=== PATIENT | female | born 1960 | race Caucasian/White ===

== ENCOUNTER → 2017-04-25 | Outpatient (CLI) | payer OTHER ==
[~2017-04-25] MED LIST: ADVAIR 2501 DISK W/D PO; CALTRATE 600+D PO; CARAFATE PO; CERTAGEN PO; CHANTIX1 MG PO; COMBIVENT MININEB INH; DARVOCET-N 1001 TA1 PO; DARVOCET-N 1001 TAB PO; IBUPROFEN PO; LEXAPRO PO; LEXAPRO20 MG PO; NASACORT AQ16.5 GM; NASAL DECONGESTANT PO; NEXIUM PO; POTASSIUM GLUCO99 MG PO; PREMARIN PO; PREVACID PO; PRILOSEC PO; PROTONIX PO; SIMVASTATIN40 MG PO; SKELAXIN PO; VICODIN PO
--- NOTE | ~2017-04-25 | MR32 ---
[facility] A Service of [facility] & [facility] RADIOLOGY TEXT RESULTS PATIENT: SUJIT PERALTA LOCATION: [facility] : 64 UNIT #: [id number] AGE: [address]: Mendez Murphy MD SEX: F ORDER DR: [id number] [address] [address] [id number] O MR#: [id number] #: [id number] NAME: SUJIT PERALTA : 1960 SEX: F STUDY DATE/TIME: 04/25/2017 9:46 UNIT: [facility] ROOM: STUDY DESCRIPTION: MR Cervical Wo Contrast Attending Physician: Mendez Murphy M.D. Referring Physician: Mendez Murphy M.D. Ordering Physician: Mendez Murphy M.D. Primary Care Physician: Concepcion Celestin A.P.R.N. MRI CENTER REPORT This report is preliminary unless electronic signature is present. EXAM MRI of the cervical spine without contrast dated 04/25/2017 COMPARISON Plain film cervical spine dated 12/13/2016. HISTORY Increasing neck pain which radiates to the right side. It extends to right shoulder, right upper extremity for approximately 5 months. Right shoulder pain with decreased range of movement. FINDINGS Multisequence, multiplanar imaging of the cervical spine was obtained without contrast. Motion artifact is noted in multiple sequences. Sagittal STIR sequence was repeated as it was nondiagnostic. Disc osteophyte complex are noted at multiple levels of the cervical spine. Vertebral body heights are relatively preserved. There is a decreased T1 and slightly increased T2-signal lesion within the C2 vertebral body which is difficult to correlate in the plain film from 12/13/2016. No associated pathological fracture. It is noted in the sagittal sequence but not in the axials. No acute fracture fragment or subluxation. Bone edema is noted in C6-7 mid vertebral bodies. Cord demonstrates expected course and caliber. Evaluation of its signal is limited due to motion but grossly no significant abnormality is seen. There is an oval 2.3 x 1.9 x 2.3 cm lesion within the right thyroid lobe, incompletely characterized in the current study. C2-3: Disc osteophyte complex with severe left facet hypertrophic change and inferior left neural foraminal narrowing with patent superior aspect. No canal stenosis. C3-4: Disc osteophyte complex with moderate left and mild right facet hypertrophic change. Lulpvabh-yz-pinxie left and mild right neural foraminal narrowing are noted with borderline size to mild canal stenosis. [facility] A Service of [facility] RADIOLOGY TEXT RESULTS PATIENT: SUJIT PERALTA LOCATION: [facility] : 64 UNIT #: [id number] AGE: [address]: Mendez Murphy MD SEX: F ORDER DR: C4-5: Disc osteophyte complex with moderate to severe canal stenosis, severe right and vhywpoqn-dm-tdsgoe left neural foraminal narrowing. C5-6: Disc osteophyte complex with mild canal stenosis. Severe bilateral neural foraminal narrowing is seen, worse in the right. C6-7: Disc osteophyte complex with superimposed central protrusion. Mctl-ec-pcqxnqyn canal stenosis, severe right and zoalecur-ic-qntjyv left neural foraminal narrowing are present. C7-T1: Disc osteophyte complex with bilateral uncinate spurs. Severe right and axshbawn-mb-jwssby left neural foraminal narrowing are noted with ufcb-im-wsubyzlb left facet hypertrophic change. Borderline size to mild canal stenosis. IMPRESSION 1. Degenerative changes are noted at multiple levels, relatively worse from C3-4 to C6-7 levels with canal stenosis and neural foraminal narrowing. 2. Cord does not demonstrate any significant abnormality. 3. Within the right side of C2 vertebral body and adjacent dens, there is a 1 cm lesion with decreased T1 and increased T2 signal. It is incompletely characterized without contrast. It is well-circumscribed. CT of the C-spine would be helpful in further characterization. 4. There is a 2.3 cm lesion within the right thyroid lobe, incompletely characterized in the current study. Clinical correlation and thyroid ultrasound are suggested for further characterization if not previously done. 5. Edematous bony changes are noted in C6-7 vertebral bodies, likely degenerative Modic type 1 changes. Dictated by... Neelima Weaver M.D. THIS IS AN ELECTRONICALLY VERIFIED REPORT Neelima Weaver M.D. at 04/30/2017 2:44 PM CPR/salas TD: 04/26/2017 12:10 JOB #: [id number] MRI CENTER REPORT Page 1 of 1
--- NOTE | ~2017-04-25 | MR165 ---
[facility] A Service of [facility] & [facility] RADIOLOGY TEXT RESULTS PATIENT: SUJIT PERALTA LOCATION: [facility] : 64 UNIT #: [id number] AGE: [address]: Mendez Murphy MD SEX: F ORDER DR: [id number] [address] [address] [id number] O MR#: [id number] Acc #: [id number] NAME: SUJIT PERALTA : 1960 SEX: F STUDY DATE/TIME: 04/25/2017 10:29 UNIT: [facility] ROOM: STUDY DESCRIPTION: MR Shoulder Wo Contrast Rt Attending Physician: Mendez Murphy M.D. Referring Physician: Mendez Murphy M.D. Ordering Physician: Mendez Murphy M.D. Primary Care Physician: Concepcion Celestin A.P.R.N. MRI CENTER REPORT This report is preliminary unless electronic signature is present. EXAM MRI right shoulder 04/25/2017 COMPARISON Right shoulder radiographs 12/13/2016. HISTORY Order states right shoulder pain, rotator cuff tear versus C5-6 radiculopathy. Cuff weakness. History sheet states right shoulder pain with limited range of motion, decreased strength, especially in certain positions for about 5 months. Neck pain radiating to the right side. Technologist notes patient was claustrophobic and in a lot of pain with repeat scans performed. No reported trauma or surgery. 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 Hypertrophic capsuloligamentous thickening and osteophyte formation are present with prominent periarticular inflammation as well as marked marrow edema of both the acromion and the clavicle. Subarticular cysts of the clavicle are present. Findings could be seen with arthrosis with superimposed repetitive stress/overuse, primary inflammatory arthritis, etc. There is mild effacement of the supraspinatus at the myotendinous junction. Coracoclavicular and coracoacromial ligaments are unremarkable. There is moderate supraspinatus and infraspinatus tendinosis without a tear. There is mild insertional subscapularis tendinosis without a tear. Teres minor tendon is intact. Rotator cuff muscles are normal. Biceps anchor, biceps tendon, and glenoid labrum are normal. The glenohumeral joint shows no effusion, chondral/osteochondral lesion, or visible loose body. STS. [facility] A Service of [facility] RADIOLOGY TEXT RESULTS PATIENT: SUJIT PERALTA LOCATION: [facility] : 64 UNIT #: [id number] AGE: [address]: Mendez Murphy MD SEX: F ORDER DR: There is no marrow lesion or fracture. No muscle atrophy is noted. IMPRESSION 1. 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 2. Moderate supraspinatus and infraspinatus tendinosis without a tear. 3. Not mentioned above is mild fluid in the subacromial - subdeltoid and subcoracoid bursae which could reflect mild bursitis. Dictated by... Tiffany Lloyd M.D. THIS IS AN ELECTRONICALLY VERIFIED REPORT Tiffany Lloyd M.D. at 04/27/2017 8:38 AM ANDRE/salas TD: 04/26/2017 13:17 JOB #: [id number] MRI CENTER REPORT Page 1 of 1
== END | disposition home or self-care (01) ==
LOC: SMRI 09:04
DX: M50.30 Other cervical disc degeneration, unspecified cervical region (principal); M25.511 Pain in right shoulder; M48.02 Spinal stenosis, cervical region; M99.81 Other biomechanical lesions of cervical region; R93.7 Abnormal findings on diagnostic imaging of other parts of musculoskeletal system; E07.9 Disorder of thyroid, unspecified; M19.011 Primary osteoarthritis, right shoulder; M75.81 Other shoulder lesions, right shoulder; M25.461 Effusion, right knee
CPT/HCPCS: 72141; 73221

== ENCOUNTER → 2017-05-08 | Outpatient (CLI) | payer OTHER ==
--- NOTE | ~2017-05-08 | CT50 ---
[facility] A Service of [facility] & [facility] RADIOLOGY TEXT RESULTS PATIENT: SUJIT PERALTA LOCATION: [facility] : 64 UNIT #: [id number] AGE: [address]: Mendez Murphy MD SEX: F ORDER DR: [id number] [facility] [address] [facility] [place], [place] [address] [id number] O MR#: [id number] Acc #: [id number] NAME: SUJIT PERALTA : 1960 SEX: F STUDY DATE/TIME: 05/08/2017 14:19 UNIT: [facility] ROOM: STUDY DESCRIPTION: CT Cervical Spine W Cont Attending Physician: Mendez Murphy M.D. Referring Physician: Mendez Murphy M.D. Ordering Physician: Mendez Murphy M.D. Primary Care Physician: Concepcion Celestin A.P.R.N. MEDICAL IMAGING REPORT This report is preliminary unless electronic signature is present EXAM Cervical spine CT with contrast HISTORY Marrow lesion C2 on MRI cervical spine 04/25/2017. Patient also complains of increasing neck pain radiating to the right side. TECHNIQUE This CT exam was performed with one or more of the following radiation dose reduction techniques: automatic exposure control, adjustment of mA and/or kV according to patient size, and iterative reconstruction. COMMENT CT of the cervical spine performed in the axial plane during the intravenous administration of 100 mL of Isovue-370. Imaging acquired in the axial plane followed by sagittal and coronal reconstructed images. Comparison is made to the MRI cervical spine from 04/25/2017. Redemonstrated is a mass lesion in the right lobe of the thyroid gland which is heterogeneous in appearance on the CT scan with central lower attenuation measuring about 2.2 x 1.5 cm dimension. Please see the thyroid ultrasound obtained also on 05/08/2017. CT characteristics are nonspecific. There is a ill-defined sclerotic lesion within the right side of C2 upper body which appears to correspond to the focus of signal abnormality on the MRI. Margins are somewhat ill-defined. It is about 1 cm in largest dimension. There is no bone destruction appreciated. There is a second sclerotic lesion at the anterior aspect of C7 that is about 9 mm in dimension. The lesions are nonspecific but not suggestive of vertebral body hemangiomata on the CT scan. While bone islands are in the differential so is osseous sclerotic metastatic disease. For this reason I would recommend the patient undergo whole-body bone scan and please correlate for any clinical history of malignancy such as breast cancer in this 57-year-old female. If bone scan is not helpful, I would recommend [facility] A Service of [facility] RADIOLOGY TEXT RESULTS PATIENT: SUJIT PERALTA LOCATION: [facility] : 64 UNIT #: [id number] AGE: [address]: Mendez Murphy MD SEX: F ORDER DR: that the MRI be repeated in about 6 months to reassess the marrow changes. Sagittal alignment is normal and there is endplate spondylosis most apparent at C6-7 and to a lesser extent C5-6. Milder spondylosis C7-T1, C4-5, C3-4. Please refer to the MRI for a description of the soft tissue changes. CT scanning is better suited to assess the bone detail. Arthritis is appreciated at the anterior atlantoaxial joint. At C2-3, there is severe facet arthritis on the left with left side bony foraminal narrowing but no bony canal compromise. At C3-4, there is moderate right and severe left-sided facet arthritis. Uncovertebral osteophyte formation left greater than right and severe left and moderate right-side bony foraminal narrowing. No bony canal stenosis. At C4-5, endplate spondylosis with uncovertebral osteophyte formation bilaterally. Mild facet degenerative change bilaterally severe bony foraminal impingement but no bony canal stenosis. At C5-6, endplate spondylosis and uncovertebral osteophyte formation bilaterally with mild facet degenerative change on the right. Severe bony foraminal impingement, right greater than left. Mild bony canal stenosis. At C6-7, endplate spondylosis and uncovertebral osteophyte formation with mild right greater than left side facet degenerative change. Bony foraminal impingement is ztqvbyta-jh-gqmuig on the right and more moderate on the left and there is mild bony canal compromise. At C7-T1, endplate spondylosis with uncovertebral osteophyte formation bilaterally and bilateral facet degenerative change. Moderate to severe right, milder left-sided foraminal narrowing. No canal stenosis. IMPRESSION 1. There is a somewhat ill-defined sclerotic lesion within the right side of the C2 vertebral body corresponding to the area of signal abnormality on the MRI. Measurements are 1.1 cm SI dimension, 1.2 cm ML dimension, 0.8 cm AP dimension. It is not associated with cortical disruption. It does not have the appearance of a hemangioma. It remains nonspecific with both benign and malignant entities in the differential. It is possible it is benign bone island but sclerotic osseous metastasis could have the same appearance. Please correlate for any malignancy history; for example, breast cancer in a 57-year-old female. At this time I would recommend the patient undergo whole-body bone scan. If the bone scan is not helpful, I would suggest the patient subsequently undergo followup MRI in 6 months to reassess. If patient has not had recent mammography, I would recommend this be obtained as a screening exam. There is a second sclerotic lesion in the C7 vertebral body anteriorly which is more dense. It is about 9 mm dimension and it is STS. [facility] A Service of [facility] RADIOLOGY TEXT RESULTS PATIENT: SUJIT PERALTA LOCATION: [facility] #: [id number] : 64 UNIT #: [id number] AGE: [address]: Mendez Murphy MD SEX: F ORDER DR: probably a bone island but if the patient does prove to have metastatic disease, metastatic disease would also be in the differential. 2. There is multilevel cervical degenerative change. The bony degenerative disease is described in detail above and please refer to the comment section. The soft tissue changes are better delineated on the previous MRI. 3. Redemonstrated is the known lesion in the right lobe of the thyroid gland. Please correlate with the ultrasound obtained the same day. It measures at least 2.2 cm in dimension and is not consistent with simple cyst. STAT * RESULT Dictated by... Bobbi Dawkins M.D. THIS IS AN ELECTRONICALLY VERIFIED REPORT Bobbi Dawkins M.D. at 05/09/2017 12:01 PM Asha TD: 05/09/2017 09:23 JOB #: [id number] MEDICAL IMAGING REPORT Page 1 of 1 COPY
--- NOTE | ~2017-05-08 | US128 ---
[id number] [facility] [address] [facility] [place], [place] [address] [id number] O MR#: [id number] Acc #: [id number] NAME: SUJIT PERALTA : 1960 SEX: F STUDY DATE/TIME: 05/08/2017 13:43 UNIT: [facility] ROOM: STUDY DESCRIPTION: US Thyroid Attending Physician: Mendez Murphy M.D. Referring Physician: Mendez Murphy M.D. Ordering Physician: Mendez Murphy M.D. Primary Care Physician: Colten Liz.P.RYosi MEDICAL IMAGING REPORT This report is preliminary unless electronic signature is present EXAM Thyroid ultrasound DATE: 05/08/2017 HISTORY Right thyroid lobe mass/nodule seen on a recent MRI. COMPARISON MRI cervical spine 04/25/2017. CT cervical spine with contrast 05/08/2017. No previous thyroid ultrasound at this institution for comparison. FINDINGS Isthmus measures about 5 mm thickness. The right thyroid lobe measures 2.0 x 4.8 x 2.1 cm. A solid appearing hypoechoic nodule with internal vascularity is seen within the right zuu-pr-sdnan thyroid pole, measuring 2.7 x 2.1 x 2.6 cm. A hypoechoic solid nodule is seen in the posterior left lower thyroid pole measuring 7 x 5 x 5 mm. No suspicious microcalcifications are seen. IMPRESSION 2.7 cm solid nodule in the right syu-fu-lrqjm thyroid lobe with internal vascularity. Ultrasound-guided fine needle aspiration is recommended. Dictated by... Alicia Goldman M.D. THIS IS AN ELECTRONICALLY VERIFIED REPORT Alicia Goldman M.D. at 05/09/2017 9:40 AM AMY/tyree TD: 05/08/2017 18:24 JOB #: [id number] MEDICAL IMAGING REPORT Page 1 of 1 COPY
[2017-05-08 14:25] LABS: POC - CREATININE 0.92 mg/dL (0.44-1.03); POC - GFR >60.0 mL/min (>60)
== END | disposition home or self-care (01) ==
LOC: CGUS 13:01
PROVIDERS: Orthopaedic Surgery
DX: E04.1 Nontoxic single thyroid nodule (principal); M89.9 Disorder of bone, unspecified; M47.892 Other spondylosis, cervical region
CPT/HCPCS: 72126; 76536; 82565; Q9967